=== PATIENT | male | born 1975 | race Caucasian/White ===

== ENCOUNTER 2016-10-15 09:01 | Day surgery (SDC) | payer BC ==
[~2016-10-15] VITALS: Ht 183.5 cm; Wt 99.0 kg
[2016-10-15] VITALS (9 sets, daily range): BP systolic 109–126; BP diastolic 63–79; PULSE 60–88; RESP 8–24; TEMP 97.3–97.6; O2SAT 60–100; Ht 183.5 cm; Wt 99.0 kg
[~2016-10-15 09:01] MED LIST: LIDOCAINE 1% (10mg/ml) 2ml SDV INJ ONE; LR 1,000 ML IV SCH; OMEP-122 PO
--- OUTSIDE RECORDS SUMMARY | 2016-10-15 09:05 | XMS REPORT | Continuity of Care Document ---
Author Author [facility] Address Unknown Phone Unavailable Support Name Relationship Address Phone MIRELLA RANGEL Caregiver [address] [place] [address] Unavailable MALISSA LING MD Caregiver [address] [place] [address] Unavailable PROSPER FREDA Next Of Kin [address] [place] [id number] Insurance Providers Guarantor Mann Burdick Address [address] [place] [phone] Payer [facility] Policy Number [id number] Subscriber's Name Mann Burdick Amber Relationship 18 Self Group Number [id number] Chief Complaint and Reason for Visit Chief Complaint Chest Pain Reason for Visit Atypical chest pain GERD (gastroesophageal reflux disease) Problems Past Problems Medical Problem Onset Date Atypical chest pain Unknown GERD (gastroesophageal reflux disease) Unknown Medications Current Home Medications Medication Dose Units Route Directions Days Qty Instructions Start Date Magnesium Carbonate/Al Hydrox (Gaviscon Es Tablet Chew) 1 Each Tab.chew 2 Tab Oral As Needed 07/23/16 Omeprazole 20 Mg Tablet.dr 20 Mg Oral Before Breakfast for Gastritis 30 Tablet Take 1 tablet, by mouth, one time a day with breakfast. 07/23/16 Social History Social History Problem Response Recorded Date/Time Onset Date Status Chewing Tobacco Status Yes 07/23/2016 5:20pm Not Applicable Not Applicable Hx Substance Use No 07/23/2016 5:20pm Not Applicable Not Applicable Hx Alcohol Use Y ONCE/WEEK 07/23/2016 5:20pm Not Applicable Not Applicable Query Response Start Date Stop Date Smoking Status Current every day smoker Hospital Discharge Instructions No hospital discharge instructions. Plan of Care Discharge Date 07/23/16 6:08pm Disposition 01 DISCHARGED HOME, SELF-CARE Condition at Discharge Improved Instructions/Education Provided DI for Gastroesophageal Reflux Disease (GERD) DI for Atypical Chest Pain Prescriptions See Medication Section Referrals MALISSA LING MD Order Date: 1 Day Address: [address] [place] [address] [phone] Note: AQUILES BRAVO MD Address: [address] [place] [address] [place] [phone] Note: Call for appointment Care Plan and Goals Physician Care Plan Problem: 1. Atypical chest pain 2. GERD Goal: 1. Follow up with primary care provider in 1-2 days 2[address] Follow with Dr[address] Bravo, Cardiology 3. Return to the ER with worsening symptoms Instructions: Take medications and follow care plan as discussed/written Functional Status No functional status results. Allergies, Adverse Reactions, Alerts Allergen Type Severity Reaction Status Last Updated NKDA Allergy Active 12/08/11 Immunizations Query Response on File Recorded Date/Time Hx Influenza Vaccination No 12/08/11 1:50pm Hx Pneumococcal Vaccination No 12/08/11 1:50pm Hx Influenza Vaccination No 12/08/11 1:50pm Influenza Vaccine Hx NOT REC'D 07/23/16 5:20pm Vital Signs Acute Vital Signs Vital Response Date/Time Temperature (Fahrenheit) 98.5 deg F (96.8 - 99.1) 07/23/2016 6:08pm Temperature (Calculated Celsius) 36.35301 degrees C (36.0 - 37.3) 07/23/2016 6:08pm Pulse Rate (adult) 77 bpm (60 - 100) 07/23/2016 6:08pm Respiratory Rate 16 breaths/min (10 - 20) 07/23/2016 6:08pm O2 Sat by Pulse Oximetry 97 % (90 - 100) 07/23/2016 6:08pm Blood Pressure 118/79 mm Hg 07/23/2016 6:08pm Height (Feet) 6 feet 07/23/2016 4:15pm Height (Inches) 0 inches 07/23/2016 4:15pm Weight (Kilograms) 104.100 kg 07/23/2016 4:15pm Body Mass Index (BMI) 31.0 07/23/2016 4:15pm Results Laboratory Results Test Name Result Units Flags Reference Collection Date/Time Result Date/ Time Comments White Blood Count 11.6 T/MM3 H 4.5-11.0 07/23/2016 4:59pm 07/23/2016 5: 10pm Red Blood Count 5.02 M/MM3 4.50-5.90 07/23/2016 4:59pm 07/23/2016 5: 10pm Hemoglobin 15.7 GM/DL 13.5-17.5 07/23/2016 4:59pm 07/23/2016 5:10pm Hematocrit 44.8 % 41-53 07/23/2016 4:59pm 07/23/2016 5:10pm Mean Corpuscular Volume 89.2 UM3 80-100 07/23/2016 4:59pm 07/23/2016 5: 10pm Mean Corpuscular Hemoglobin 31.3 UUG 26-34 07/23/2016 4:59pm 2015 5:10pm Mean Corpuscular Hemoglobin Concent 35.0 GM/DL 31-37 07/23/2016 4:59pm 07/23/2016 5:10pm RDW Standard Deviation 39.9 FL 36.9-50.2 07/23/2016 4:59pm 07/23/2016 5 :10pm Platelet Count 290 T/MM3 130-400 07/23/2016 4:59pm 07/23/2016 5:10pm Mean Platelet Volume 9.5 UM3 9.4-12.4 07/23/2016 4:59pm 07/23/2016 5: 10pm Neutrophils (%) (Auto) 62.2 % 33-66 07/23/2016 4:59pm 07/23/2016 5: 10pm Lymphocytes (%) (Auto) 25.0 % 23-45 07/23/2016 4:59pm 07/23/2016 5: 10pm Monocytes (%) (Auto) 8.4 % 0-9.0 07/23/2016 4:59pm 07/23/2016 5:10pm Eosinophils (%) (Auto) 1.7 % 0-4 07/23/2016 4:59pm 07/23/2016 5:10pm Basophils (%) (Auto) 0.6 % 0-2 07/23/2016 4:59pm 07/23/2016 5:10pm Immature Granulocyte % (Auto) 2.1 % H 0.0-0.5 07/23/2016 4:59pm 2015 5:10pm Absolute Neutrophils (auto) 7.2 T/MM3 1.8-7.7 07/23/2016 4:59pm 2015 5:10pm Absolute Lymphocytes (auto) 2.9 T/MM3 1-4.8 07/23/2016 4:59pm 2015 5:10pm Absolute Monocytes (auto) 1.0 T/MM3 H 0-0.8 07/23/2016 4:59pm 2015 5:10pm Absolute Eosinophils (auto) 0.2 T/MM3 0-0.5 07/23/2016 4:59pm 2015 5:10pm Absolute Basophils (auto) 0.1 T/MM3 0-0.2 07/23/2016 4:59pm 07/23/2016 5:10pm Absolute Immature Granulocyte (auto 0.24 T/MM3 H 0.00-0.03 07/23/2016 4: 59pm 07/23/2016 5:10pm Icterus Index < 2 0-7 07/23/2016 4:59pm 07/23/2016 5:19pm Chemistry Specimen Hemolysis 15 0-25 07/23/2016 4:59pm 07/23/2016 5: 19pm 0-25: Specimen Exhibited No Hemolysis. Turbidity < 20 0-20 07/23/2016 4:59pm 07/23/2016 5:19pm Sodium Level 142 MEQ/L 134-144 07/23/2016 4:59pm 07/23/2016 5:19pm Potassium Level 3.8 MEQ/L 3.6-5 07/23/2016 4:59pm 07/23/2016 5:19pm Chloride Level 104 MEQ/L 98-107 07/23/2016 4:59pm 07/23/2016 5:19pm Carbon Dioxide Level 26 MEQ/L 22-30 07/23/2016 4:59pm 07/23/2016 5: 19pm Anion Gap 12 MEQ/L 5-15 07/23/2016 4:59pm 07/23/2016 5:19pm Blood Urea Nitrogen 14.0 MG/DL 9-07/23/2016 4:59pm 07/23/2016 5: 19pm Creatinine 0.9 MG/DL 0.8-1.5 07/23/2016 4:59pm 07/23/2016 5:19pm BUN/Creatinine Ratio 16 RATIO 6-07/23/2016 4:59pm 07/23/2016 5:19pm Glomerular Filtration Rate Calc 94 07/23/2016 4:59pm 07/23/2016 5: 19pm Glucose Level 89 MG/DL 75-110 07/23/2016 4:59pm 07/23/2016 5:19pm Calculated Osmolality 273 MOSM/KG 261-280 07/23/2016 4:59pm 07/23/2016 5:19pm Calcium Level 9.5 MG/DL 8.4-10.2 07/23/2016 4:59pm 07/23/2016 5:19pm Troponin I < 0.012 ng/ml 0-0.12 07/23/2016 4:59pm 07/23/2016 5:31pm Troponin values with a difference of 55% increase from orginal troponin value represent a true biological DELTA value. (%increase Calc=Orginal Troponin value, divided by subsequent Troponin value, multiplied by 100) Procedures No known history of procedures. Encounters Encounter Location Arrival/Admit Date Discharge/Depart Date Attending Provider Departed Emergency Room [facility] 07/23/16 4:13pm 07/23/16 6: 08pm MIRELLA RANGEL DO Recent Diagnosis
--- OUTSIDE RECORDS SUMMARY | 2016-10-15 09:05 | XMS REPORT | Referral Summary ---
Author Author [facility] Organization [facility] Address Unknown Phone Unavailable Care Team Providers Care Whipped Topping Finisher Name Role Phone Phyllis Bustillo Primary Care Physician [phone] Encounter VC Date(s): 09/06/16 - 09/06/16 [facility] [address] [place] [id number] Discharge Diagnosis: LUQ abdominal pain Discharge Diagnosis: Gastro-Esoph Reflux Discharge Disposition: 01-Home or Self Care Attending Physician: Theodore Bustillo MD Admitting Physician: Theodore Bustillo MD Vital Signs Most recent to 1 oldest [Reference Range]: Peripheral Pulse 60 bpm Rate [60-100 bpm] (09/06/16 10:49 AM) Blood Pressure 140/60 mmHg [90-140/60-90 mmHg] (09/06/16 10:49 AM) Problem List Condition Effective Dates Status Health Status Informant Gastro-Esoph Active Reflux(Confirmed) Morbid Active patient obesity(Confirmed) Chicken Active pox(Confirmed) Allergies, Adverse Reactions, Alerts No Known Medication Allergies Medications omeprazole 20 mg oral delayed release capsule 20 mg 1 caps, Oral, Daily, # 30 caps, 5 Refill(s), Pharmacy: [facility] # [id number], 1 caps Oral Daily Start Date: 09/06/16 Status: Ordered Results No data available for this section Immunizations Given and Recorded Vaccine Date Status Refusal Reason tetanus/diphth/pertuss (Tdap) adult/adol 05/17/13 Recorded hepatitis B vaccine 03/03/04 Recorded hepatitis B vaccine 10/02/03 Recorded hepatitis B vaccine 09/03/03 Recorded influenza virus vaccine, inactivated 05/19/15 Given tetanus-diphth toxoids (Td) adult/adol 09/03/03 Recorded Procedures Procedure Date Related Diagnosis Body Site EGD1 12/09/11 Rt Knee Arthroscopy 2007 1No Bartholomew's Noted on Path report, but endoscopically appeared to have Bartholomew' s. Stay on PPI, repeat EGD in 3 yrs. RTC if GERD increases. Social History Social History Type Response Smoking Status Former smoker; Type: Cigarettes; Tobacco use per day: 1 Pack ; Number of years: 15 Assessment and Plan Extracted from: Title: Acute OV Author: Theodore Bustillo MD Date: 09/06/16 Impression and Plan Diagnosis Gastro-Esoph Reflux (UCL80-EI K21.9, Discharge, Medical). LUQ abdominal pain (QMI87-FQ R10.12, Discharge, Medical). Orders Orders (Selected) Prescriptions Prescribed omeprazole 20 mg oral delayed release capsule: 20 mg=1 caps, Oral, Daily, 30 caps, 5 Refill(s).
--- OUTSIDE RECORDS SUMMARY | 2016-10-15 09:05 | XMS REPORT | Continuity of Care Document ---
Author Author [facility] Organization [facility] Address Unknown Phone Unavailable Allergies Active Description Code Type Severity Reaction Onset Reported/Identified Relationship to Patient Clinical Status Yes No Known Medication Allergies NKMA N/A N/A 05/19/2015 Medications Problems Procedures Results Encounters ACCT No. Visit Date/Time Discharge Status Pt. Type Provider Facility Loc./Unit Complaint [id number] 10/06/2016 08:46:00 2016 23:59:00 DIS Outpatient Estuardo Galan [facility] consult for EGD from 2011 [id number] 09/06/2016 10:39:00 2016 23:59:00 DIS Outpatient Theodore Bustillo V [facility] TCPA dull pain on left side [id number] 12/12/2015 08:01:00 2015 23:59:00 DIS Outpatient Theodore Bustillo V [facility] pain on left side [id number] 05/19/2015 08:12:00 2014 23:59:00 DIS Outpatient Theodore Bustillo V [facility] fu after ct continued back pain
[2016-10-15] MEDS ORDERED: BENZOCAINE 20% Top. Anesth. SPRAY UD ONE (11:07)
[2016-10-15] MEDS ORDERED: LIDOCAINE VISCOUS 2% Oral Soln 15ml UD ONE (11:07)
--- NOTE | 2016-10-15 15:32 | OPNOTEF ---
DATE OF SERVICE 10/15/2016 SURGEON Estuardo Villaseñor MD PREOPERATIVE DIAGNOSIS Personal history for endoscopic evidence for Bartholomew's metaplasia, recent history for increasing gastroesophageal reflux disease symptomatology. POSTOPERATIVE DIAGNOSIS Personal history for endoscopic evidence for Bartholomew's metaplasia, recent history for increasing gastroesophageal reflux disease symptomatology, hiatal hernia, irregular GE junction with component of distal esophagitis. PROCEDURE Esophagogastroduodenoscopy with circumferential biopsies from distal esophagus via cold biopsy technique. ANESTHESIA None. BRIEF HISTORY/INDICATIONS Mr. Burdick is a 40-year-old gentleman who several years ago had underwent an EGD and was found to have endoscopic evidence for Bartholomew's metaplasia with progression of the columnar mucosa upon the squamous epithelium. However pathologically the patient was not confirmed to have evidence for Bartholomew's metaplasia. The patient recently has had increasing heartburn symptomatology and in fact had presented to the emergency room as a result of severe reflux. Patient presents today to undergo repeat endoscopic evaluation. For completeness please refer to notes included in the patient's chart. FINDINGS Upon upper endoscopy the patient was found have some irregularity of the squamocolumnar junction suggestive of a short segment of Bartholomew's metaplasia. This did not appear to be as pronounced as previously described. There was some progression of the columnar mucosa upon the squamous epithelium to a length of about 8 mm to 1 cm at various locations. Distal esophagus also seemed to be somewhat edematous and erythematous in nature. No hemant ulcerations were noted. The patient was found to have a small hiatal hernia. Otherwise esophagus, stomach and duodenum were within normal limits. DESCRIPTION OF PROCEDURE After informed consent was obtained, the patient was brought to the endoscopy suite and placed on the table in left lateral decubitus position. The patient's oral hypopharynx was sprayed with local anesthetic. Patient had requested that no anesthesia be performed. Next, an Olympus gastroscope was inserted into the oral hypopharynx and subsequently the esophagus under direct visualization. The gastroscope was advanced through the esophagus, stomach, pylorus, duodenal bulb, into the second portion of the duodenum. The scope was slowly withdrawn. First and second portions of the duodenum were within normal limits. No evidence for duodenitis or ulcerations were noted. The scope was then drawn back into the prepyloric region and antrum. Again, no marked mucosal abnormalities were noted. A J-maneuver was then performed. One could see a small hiatal hernia. Otherwise, the cardia and fundus of the stomach were within normal limits. Scope was allowed to straighten and slowly withdrawn. Squamocolumnar junction was located about 4-5 cm above the level of the diaphragm, indicative of a small hiatal hernia. As stated above, there was a component of some distal esophagitis with the mucosa being somewhat erythematous and edematous involving the distal esophagus. Furthermore, there was irregularity of the squamocolumnar junction as discussed above. Multiple circumferential biopsies were obtained from the distal esophagus via cold biopsy technique. Gastroscope was then slowly withdrawn. The remaining esophageal mucosa was found to be within normal limits. The patient tolerated the procedure without difficulty and was sent back to the preop area in stable condition. We will await the biopsy results from today's esophagogastroduodenoscopy and will proceed accordingly with further recommendations thereafter. YANIV
== END 2016-10-15 12:20 | disposition home or self-care (01) ==
LOC: NSC 09:01
PROVIDERS: ATTEND Surgery
DX: K21.0 Gastro-esophageal reflux disease with esophagitis (principal); Z87.19 Personal history of other diseases of the digestive system; K44.9 Diaphragmatic hernia without obstruction or gangrene; Z79.899 Other long term (current) drug therapy
CPT/HCPCS: 43239; J7120